=== PATIENT | male | born 1965 | race Caucasian/White ===

== ENCOUNTER 2018-01-23 23:18 | Emergency (ER) | payer OTHER ==
[2018-01-24] MEDS ORDERED: Morphine INJ* 2 MG/ML 1 ML SYRINGE (TWO MG - NEW SYRINGE VERSION) IV ONE (01:05)
[2018-01-24] MEDS ORDERED: Ondansetron INJ* 2 MG/ML VIAL IV ONE (01:05)
--- NOTE | 2018-01-24 01:17 | ED ---
Abdominal Pain/Male - HPI Summary HPI Summary: This patient is a 52 year old M presenting to [facility] accompanied by with a chief complaint of diffuse abd pain that began one week ago and worsened today. The patient rates the pain 3/10 in severity. Symptoms aggravated by nothing. Symptoms alleviated by nothing. Patient reports decreased appetite, vomiting, diarrhea, recent weight loss, chills, fever, and myalgia. Patient denies testicular tenderness, headache, double vision, blurred vision, lightheadedness , bruising, CP, SOB, and sore throat. Patient reports he had flu-like symptoms two weeks ago. - History of Current Complaint Chief Complaint: EDAbdPain Stated Complaint: ABD PAIN Hx Obtained From: Patient Onset/Duration: Sudden Onset, Lasting Weeks, Still Present Timing: Constant, Lasting Weeks Severity Initially: Mild Severity Currently: Mild Pain Intensity: 3 Pain Scale Used: 0-10 Numeric Location: Diffuse Aggravating Factor(s): Nothing Alleviating Factor(s): Nothing - Allergies/Home Medications Allergies/Adverse Reactions: Allergies Allergy/AdvReac Type Severity Reaction Status Date / Time acetaminophen [From Percocet] AdvReac Nausea Verified 11/05/17 12:01 oxycodone [From Percocet] AdvReac Nausea Verified 11/05/17 12:01 PMH/Surg Hx/FS Hx/Imm Hx Previously Healthy: Yes Endocrine/Hematology History: Denies: Hx Diabetes, Hx Sickle Cell Disease, Hx Thyroid Disease Cardiovascular History: Denies: Hx Hypercholesterolemia, Hx Hypertension, Hx Pacemaker/ICD, Hx Peripheral Vascular Disease, Other Cardiovascular Problems/Disorders Respiratory History: Denies: Hx Asthma, Hx Chronic Obstructive Pulmonary Disease (COPD), Other Respiratory Problems/Disorders GI History: Denies: Hx Ulcer, Other GI Disorders History: Denies: Hx Renal Disease, Other Problems/Disorders Musculoskeletal History: Denies: Hx Arthritis, Hx Rheumatoid Arthritis, Hx Osteoporosis Sensory History: Denies: Hx Cataracts, Hx Contacts or Glasses, Hx Glaucoma, Hx Hearing Aid Opthamlomology History: Denies: Hx Cataracts, Hx Contacts or Glasses, Hx Glaucoma Neurological History: Denies: Hx Headaches, Hx Seizures, Hx Transient Ischemic Attacks (TIA) Psychiatric History: Denies: Hx Anxiety, Hx Depression, Hx Panic Disorder - Surgical History Surgery Procedure, Year, and Place: 1972 TONSILECTOMY [place]. 1984 WISDOM TEETH [facility]. 09/18 - Lt ACL REPAIR. L5/S1 DISCECTOMY 2013 Hx Anesthesia Reactions: No Infectious Disease History: No Infectious Disease History: Denies: Hx Hepatitis, Hx Human Immunodeficiency Virus (HIV), Traveled Outside the [place] in Last 30 Days - Family History Known Family History: Negative: Cardiac Disease - Social History Occupation: Unemployed Lives: With Family Alcohol Use: Rare Hx Substance Use: No Substance Use Type: Reports: None Hx Tobacco Use: No Smoking Status (MU): Never Smoked Tobacco Review of Systems Positive: Fever, Chills Negative: Blurred Vision, Diplopia Negative: Sore Throat Negative: Chest Pain Negative: Shortness Of Breath Positive: Abdominal Pain, Vomiting, Diarrhea, Other - Positive decreased appetite and recent weight loss Genitourinary: Other - Negative testicular pain Positive: Myalgia Negative: Bruising Negative: Headache Negative: Anxious, Depressed All Other Systems Reviewed And Are Negative: Yes Physical Exam - Summary Physical Exam Summary: Appearance: Alert, conversive, nontoxic appearing Skin: Warm, dry, no mottling, no rashes, no contusions HEENT: EOMI, PERRL, moist mucous membranes Neck: No masses on the neck, supple Respiratory: Clear to auscultation, breath sounds present, no rales, no rhonchi , no wheezes Cardiovascular: RRR, pulses are symmetrical in both lower and upper extremities Abdomen: Soft, epigastric tenderness Bowel Sounds: Present Musculoskeletal: No CVA tenderness, no obvious deformity, moving all extremities in a grossly normal manner Neurological: A&Ox3, CN II-XII Intact, moving all extremities symmetrically Psychiatric: Normal affect and mood Triage Information Reviewed: Yes Vital Signs On Initial Exam: Initial Vitals Temp Pulse Resp BP Pulse Ox 99.9 F 65 20 107/53 98 01/23/18 23:21 01/23/18 23:21 01/23/18 23:21 01/23/18 23:21 01/23/18 23:21 Vital Signs Reviewed: Yes Diagnostics - Vital Signs Vital Signs Temp Pulse Resp BP Pulse Ox 01/23/18 23:21 99.9 F 65 20 107/53 98 - Laboratory Result Diagrams: 01/24/18 02:20 01/24/18 02:21 Lab Statement: Any lab studies that have been ordered have been reviewed, and results considered in the medical decision making process. - Radiology CXR Radiology Interpretation Completed By: ED Physician - CXR reveals, per ED physician, no acute disease. - CT CT Abdomen and Pelvis CT Interpretation Completed By: Radiologist - Abdomen and pelvis CT reveals, per radiologist, 1. There is likely left sided moderate scrotal hydrocele. 2. No visible renal, ureteral or bladder calculi. ED physician has reviewed this radiology report. Re-Evaluation - Re-Evaluation First Eval Re-Evaluation Time: 03:05 Change: Improved Comment: Discussed plan of care and results with patient. He feels much improved after 2L of fluid. Abdominal Pain Fem Course/Dx - Course Course Of Treatment: This patient is a 52 year old M presenting to [facility] accompanied by with a chief complaint of diffuse abd pain that began one week ago and worsened today. Physical Exam Findings: Epigastric tenderness. CXR reveals, per ED physician, no acute disease. Abdomen and pelvis CT reveals, per radiologist, 1. There is likely left sided moderate scrotal hydrocele. 2. No visible renal, ureteral or bladder calculi. Bloodwork and UA obtained. In the ED course the patient was given morphine, fluids, and Zofran. Patient will be discharged with follow up from PCP. The patient is agreeable with this plan. - Diagnoses Provider Diagnoses: Dehydration, Gastroenteritis Discharge - Sign-Out/Discharge Documenting (check all that apply): Patient Departure - Discharge home - Discharge Plan Referrals: Zachariah Zelaya MD [Primary Care Provider] - Attestations Scribe Attestation: This is debra Ovalle documenting for attending Oksana Lord MD. User Type: Provider with Scribe Provider Attestation: The documentation recorded by the scribe accurately reflects the service I personally performed and the decisions made by me.
[2018-01-24] MEDS ORDERED: NS 0.9% 1000 ML* 1,000 ML IV ONE ×2 (02:10→02:11)
--- NOTE | 2018-01-24 02:12 | RAD ---
EXAM: CT Abdomen and Pelvis Without Intravenous Contrast CLINICAL HISTORY: 52 years old, male; Pain; Abdominal pain; Flank; Left; Additional info: Left flank pain radiating to abd TECHNIQUE: Axial computed tomography images of the abdomen and pelvis without intravenous contrast. Coronal and sagittal reformatted images were created and reviewed. COMPARISON: PELV WO MRI PELVIS W/O 2013-03-28 11:26 FINDINGS: Lung bases: There is minimal bibasilar atelectatic change or scarring. ABDOMEN: Liver: There is hepatomegaly. Gallbladder and bile ducts: Unremarkable. No calcified stones. No ductal dilation. Pancreas: Unremarkable. No ductal dilation. Spleen: There is splenomegaly. Adrenals: Unremarkable. No mass. Kidneys and ureters: Unremarkable. No obstructing stones. No hydronephrosis. Stomach and bowel: Unremarkable. No obstruction. No mucosal thickening. PELVIS: Appendix: The appendix is not visible. Bladder: Unremarkable. No stones. Reproductive: There is likely left sided moderate scrotal hydrocele. ABDOMEN and PELVIS: Intraperitoneal space: Unremarkable. No free air. No significant fluid collection. Bones/joints: There are mild degenerative changes at L5-S1. No acute fracture. No dislocation. Soft tissues: Unremarkable. Vasculature: There are atherosclerotic aortic calcifications. No abdominal aortic aneurysm. Lymph nodes: Unremarkable. No enlarged lymph nodes. IMPRESSION: 1. There is likely left sided moderate scrotal hydrocele. 2. No visible renal, ureteral or bladder calculi. R0
[2018-01-24 02:45] LABS: EGFR Non-African American 78.8 (>60)
[2018-01-24 02:53] LABS: ABS Basophils 0 10^3/ul (0-0.2); ABS Eosinophils 0 10^3/ul (0-0.6); ABS Lymphocytes 1.3 10^3/ul (1.0-4.8); ABS Monocytes 0.8 10^3/ul (0-0.8); ABS Neutrophils 2.5 10^3/ul (1.5-7.7); ABS Nucleated RBC 0 10^3/ul; Hematocrit 38 % (42-52); Hemoglobin 13.1 g/dl (14.0-18.0); Mean Corpuscular HGB Conc 35 g/dl (31-36); Mean Corpuscular Hemoglobin 30 pg (27-31); Mean Corpuscular Volume 87 fL (80-94); Red Blood Count 4.37 10^6/ul (4.00-5.40); Red Cell Distribution Width 13 % (10.5-15); White Blood Count 4.6 10^3/ul (3.5-10.8)
[2018-01-24 03:32] LABS: ABS Basophils 0 10^3/ul (0-0.2); ABS Neutrophils 2.5 10^3/ul (1.5-7.7); Mean Platelet Volume 9.6 um3 (7.4-10.4); Monocytes % 13 % (0-7); Platelet Count 95 10^3/ul (150-450)
[2018-01-24 03:39] VITALS: BP 117/68
--- NOTE | 2018-01-24 07:36 | RAD ---
HISTORY: cough COMPARISONS: None VIEWS: 1: frontal portable view of the chest at 1:45 AM FINDINGS: LINES AND TUBES: None. CARDIOMEDIASTINAL SILHOUETTE: The cardiomediastinal silhouette is normal for portable technique. PLEURA: The costophrenic angles are sharp. No pleural abnormalities are noted. LUNG PARENCHYMA: The lungs are clear. ABDOMEN: The upper abdomen is clear. There is no subphrenic gas. BONES AND SOFT TISSUES: No bone or soft tissue abnormalities are noted. IMPRESSION: NO ACTIVE CARDIOPULMONARY DISEASE. R1
== END 2018-01-24 03:36 | disposition home or self-care (01) ==
LOC: ED 23:18
DX: K52.9 Noninfective gastroenteritis and colitis, unspecified (principal); E86.0 Dehydration
CPT/HCPCS: 36415; 71045; 74176; 80053; 83605; 83690; 83735; 85025; 85060; 96361; 96374; 96375; 99282; J2270; J2405